=== PATIENT | female | born 2000 | race Hispanic/Latino ===

== ENCOUNTER 2025-06-25 21:33 | Emergency (ER) | payer OTHER ==
[~2025-06-25] VITALS: Ht 157.5 cm; Wt 74.8 kg
[2025-06-25 21:34] VITALS: TEMP 98.2
--- NOTE | 2025-06-25 21:44 | NUR ---
TRANSFER CALL PLACED TO [facility] CL[facility]ICAL SPECIALIST--PLACED ON "HOLD."
--- NOTE | 2025-06-25 21:45 | NUR ---
TRANSFER 2ND ATTEMPT TO CONTACT [facility] PHOTOVOLTAIC FABRICATION TECHNICIAN. PLACED ON "HOLD."
--- NOTE | 2025-06-25 21:47 | NUR ---
TRANSFER 3RD ATTEMPT TO CONTACT [facility]--PLACED ON "HOLD."
--- NOTE | 2025-06-25 21:48 | NUR ---
TRANSFER CALL PLACED TO [facility]. STATES HE HAS BEEN HAVING DIFFICULTY REACHING THE TRANSFER CENTER. ASKED IF HE COULD SPEAK TO THE PIPE SMOKER MACHINE OPERATOR "[employer] [employer]" FOR "DROP-INS" UNLESS [facility] DO[facility] NOT HAVE THE CAPACITY TO ACCOMMODATE THIS PATIENT. HE WENT ON TO SAY THAT WE STILL HAVE TO CONTACT THE TRANSFER CENTER TO WHICH I ACKNOWLEDGED
--- NOTE | 2025-06-25 21:51 | ERN ---
ED Note History of Present Illness Stated Complaint: CONTRACTIONS, 39.4 Chief Complaint: OB>20 weeks gest. Time Seen by MD: 21:39 Dictation: This is a 25-year-old female who is 2 para 1, currently presents with the 39 weeks term and active contractions for the past 24 hours. Apparently patient has been living with her in [place] and her care has been in [place]. The stated that they came here to [place] for closing on a property and patient began experiencing active con tractions. She stated that she lost her mucus plug 2 nights ago. No vaginal bleeding. The contractions are once injury 5-10 minutes. Patient does not have any enterprise project manager locally here. Patient's due date is 06/28/2025 Temperature 98.2 pulse 94 respirations 22 blood pressure 152/73 with a pulse oximetry of 98% on room air She denied any major health issues during her period. Allergies: Coded Allergies: No Known Allergies (Unverified Allergy, Unknown, 06/25/25) Past Medical History Past Medical History: No Pertinent History Surgical History: None Family History: Negative Social History: Negative : 2 Para: 1 RN Note Reviewed/Agreed w/PFSH: Yes Review of System Dictation Constitutional: Negative for fever,chills, and weight loss Eyes: Negative for injury, pain,redness, and discharge ENT: Negative for injury,pain or swelling Cardiovascular: Negative for chest pain, palpitations, and edema Respiratory: Negative for shortness of breath, cough, and wheezing, Abdomen/GI: Negative for abdominal pain, nausea, vomiting, diarrhea, and constipation Back: Negative for injury and pain : Negative for injury, bleeding and discharge patient is 39 weeks and lost her mucus plug 2 days ago and currently having active contractions every 5 minutes MS/Extremity: Negative for injury and deformity Skin: Negative for rash, and discoloration Neuro: Negative for headache, weakness, numbness, tingling, and seizure Psych: Negative for suicide ideation, homicidal ideation, and hallucinations Initial Vital Sign VS Vital Signs Date Time Temp Pulse Resp B/P (MAP) Pulse Ox O2 Delivery O2 Flow Rate FiO2 06/25/25 21:34 98.2 94 22 112/73 98 Room Air 06/25/25 21:48 0 21 Physical Exam Dictation General: awake, alert, NAD Head/Face: Normocephalic, atraumatic Eyes: PERRL, EOMI, vision at baseline ENT: oral cavity clear, TMs clear, no signs of infection Neck: Trachea midline, supple, no nuchal rigidity Cardiovascular: RRR, normal S1/S2, No MRGs, no JVD Respiratory: CTAB, no respiratory distress, No rales or wheezes Abdomen: Soft, non-tender, non-distended, normal bowel sounds, no guarding or rebound. Gravid uterus Skin: Warm, dry, normal turgor, no rash MS/Extremity: Pulses equal, no cyanosis, neurovascular intact, FROM Neuro: COAx4, GCS 15, strength 5/5, CN 2-12 intact, normal cerebellar exam, normal gait, Psych: Normal behavior, mood, and affect normal Extremities-trace edema without any palpable cords, Homans sign is negative Results (Laboratory/Radiology) Labs Reviewed?: Yes ED Course ED Course Vital Signs Date Time Temp Pulse Resp B/P (MAP) Pulse Ox O2 Delivery O2 Flow Rate FiO2 06/25/25 22:48 89 16 108/68 99 Room Air* 0 21 06/25/25 21:48 90 17 127/64 98 Room Air* 0 21 06/25/25 21:34 98.2 94 22 112/73 98 Room Air 11:00 p.m. EMS is here to pickle maker patient to transport to [facility] Medical Decision Making MDM Differential diagnosis: Active labor contractions, constipation, urinary tract infection, kidney stone This is a 25-year-old female who is 2 para 1, currently presents with the 39 weeks term and active contractions for the past 24 hours. Apparently patient has been living with her in [place] and her care has been in [place]. The stated that they came here to [place] for closing on a property and patient began experiencing active contractions. She stated that she lost her mucus plug 2 nights ago. No vaginal bleeding. The contractions are once injury 5-10 minutes. Patient does not have any enterprise project manager locally here. Patient's due date is 06/28/2025 Temperature 98.2 pulse 94 respirations 22 blood pressure 152/73 with a pulse oximetry of 98% on room air She denied any major health issues during her period. heart rate is 146 Efforts to initiate transfer to [facility]-housekeeper supervisor notified Rationale: Tests considered and ordered secondary to shared decision making include: labs, ECG and radiology Previous outside records reviewed: Old ER visits. Risk of complication and/or morbidity or mortality of patient management: None Medications-Per medication reconciliation Need for hospitalization: Patient does meet criteria for hospitalization. Need for emergency major/minor surgery: No There are no social concerns with this patient. Prescription drug management Prescriptions will include symptomatic care Patient's prior external medical records from other ER visits were reviewed by me as indicated. Prior testing and results from previous visits were reviewed. Prior tests were taken into account with medical decision making and resource utilization, independent historian/historians were used to obtain complete medical history. I independently interpreted the test that were performed, results were reviewed by me and considered findings on radiology if ordered. Medical management and examination interpretation discussions were had by me with other qualified healthcare professionals as indicated for the patient's care. DUE TO LACK OF AVAILABILITY OF OBGYN SERVICES/LABOR AND DELIVERY, PATIENT WILL BE TRANSFERRED TO [facility] ONGOING ACTIVE LABOR WITH CONTRACTIONS Problem List Problem List: (1) Active labor at term (2) 2 DX & DISP Disposition: Transfer Departure Impression: Primary Impression: Active labor at term Additional Impression: 2 Condition: Stable Additional Instructions: The patient has been informed about all the diagnostic tests and procedures carried out in the emergency room today and has confirmed understanding of the results. Patient will be transferred to a facility that provides a higher level of care since such services are not accessible locally or within our immediate community. The patient is alert oriented and not experiencing any acute distress. There are no signs of sepsis and patient's hemodynamic status is stable at the moment. Medically, the patient is considered stable for transfer Patient will be transferred to [facility] due to lack of OBGYN services at this facility. Referrals: NONE (PCP) YAMIL NJAERA MD Jun 25, 2025 21:50
--- NOTE | 2025-06-25 22:01 | NUR ---
TRANSFER PLACED ON "HOLD" WITH [facility] TRANSFER
--- NOTE | 2025-06-25 22:11 | NUR ---
TRANSFER CALL PLACED TO [facility] WINDOWS SOFTWARE ENGINEER TO INITIATE EMERGENT TRANSFER FOR 39.4 WEEK DROP-IN PT.
--- NOTE | 2025-06-25 22:42 | NUR ---
TRANSFER PT. WAS ACCEPTED @ 2224 BY EN RODRIGUEZ MD FOR TRANSFER TO [facility] [place]. ROOM ASSIGNMENT AT THIS TIME: L & D TRIAGE. REPORT: [phone]
[2025-06-25 22:48] VITALS: BP 108/68; PULSE 89; RESP 16; O2SAT 99
--- NOTE | 2025-06-25 22:55 | NUR ---
[facility] CALLED FOR EMERGENT TRANSPORT OF LABORING, PATIENT
--- NOTE | 2025-06-25 23:10 | NUR ---
REPORT GIVEN TO FIGUEROA MCKAY AT [facility] [place]
== END 2025-06-25 23:10 | disposition short-term general hospital (02) ==
LOC: EDH 21:33
DX: O62.9 Abnormality of forces of labor, unspecified (principal); Z3A.39 39 weeks gestation of pregnancy
CPT/HCPCS: 99285